=== PATIENT | male | born 1955 | race Caucasian/White ===

== ENCOUNTER 2018-09-26 14:01 | Outpatient (CLI) | payer OTHER | END 2018-09-26 14:02 | disposition home or self-care (01) | LOC: RT 14:01 | PROVIDERS: ATTEND Internal Medicine Gastroenterology | DX: I10 Essential (primary) hypertension (principal); I63.40 Cerebral infarction due to embolism of unspecified cerebral artery | CPT/HCPCS: 93005 ==

== ENCOUNTER 2018-09-30 09:29 | Day surgery (SDC) | payer OTHER ==
[~2018-09-30 09:29] MED LIST: BUPIVACAINE 0.25% PF 30 ML VIAL ONE; LACTATED RINGERS 1,000 ML IV ONE; LIDOCAINE 1%-EPI 1:100000 30 ML MDV ONE; ceFAZolin 2 GM/50 ML 2 GM/50 ML BAG IV ONE
--- NOTE | 2018-09-30 09:51 | ANESTHESIA ---
Pre-Anesthesia VS, & Labs - Diagnosis left inguinal hernia - Procedure left inguinal hernia repair Vital Signs: Temp Pulse Resp BP Pulse Ox 36.0 C L 51 L 16 190/117 H 100 09/30/18 09:40 09/30/18 09:40 09/30/18 09:40 09/30/18 09:40 09/30/18 09:40 Height 5 ft 11 in Weight (kg) 76.5 kg Body Mass Index 22.7 - NPO >8 hours Home Medications and Allergies Home Medications: Ambulatory Orders Lisinopril [Zestril] 40 mg PO DAILY 09/26/18 Metoprolol Succinate 100 mg PO DAILY 09/26/18 Lisinopril [Zestril] 40 mg PO DAILY 09/26/18 Metoprolol Succinate 100 mg PO DAILY 09/26/18 Allergies/Adverse Reactions: Allergies Allergy/AdvReac Type Severity Reaction Status Date / Time levofloxacin [From Levaquin] AdvReac Nausea Verified 09/26/18 13:54 Anes History & Medical History - Anesthetic History Anesthesia Complications: reports: No previous complications Family history of Anesthesia Complications: Denies Family history of Malignant Hyperthermia: Denies - Medical History Cardiovascular: reports: Hypertension Pulmonary: reports: None Gastrointestinal: reports: None Urinary: reports: None Musculoskeletal: reports: None Endocrine/Autoimmune: reports: None Blood Disorders: reports: None Skin: reports: None Smoking Status: Never smoker Exam General: Alert Dental: Other (caps) Mouth Openin Fingerbreadth Neck Mobility: Normal Mallampati classification: II Thyromental Distance: greater than 6 cm Respiratory: Lungs clear, Normal breath sounds, No respiratory distress, No accessory muscle use Cardiovascular: Regular rate, Normal S1, Normal S2, No murmurs Mental/Cognitive Status: Alert/Oriented X3, Normal for patient Plan Anesthesia Type: MAC Consent for Procedure(s) Verified and Reviewed: Yes Code Status: Attempt Resuscitation ASA classification: 2-Mild systemic disease Is this case an emergency?: No
[2018-09-30] MEDS ORDERED: BUPIVACAINE 0.25% PF 30 ML VIAL SUBQ ONE ×2 (10:29)
[2018-09-30] MEDS ORDERED: ceFAZolin 1 GM VIAL ONE (10:30)
[2018-09-30] MEDS ORDERED: DEXAMETHASONE 4 MG/ML VIAL IVP ONE (10:46)
[2018-09-30] MEDS ORDERED: KETOROLAC 30 MG/ML VIAL IVP ONE (10:46)
[2018-09-30] MEDS ORDERED: fentaNYL 100 MCG/2 ML VIAL IVP ONE (10:46)
[2018-09-30] MEDS ORDERED: hydrALAZINE INJ 20 MG/ML VIAL IVP ONE (10:46)
[2018-09-30] MEDS ORDERED: PROPOFOL 200 MG/20 ML VIAL IVP ONE (10:46)
[2018-09-30] MEDS ORDERED: ONDANSETRON 4 MG/2 ML VIAL IVP ONE (10:46)
[2018-09-30] MEDS ORDERED: MIDAZOLAM 2 MG/2 ML VIAL IVP ONE (10:46)
[2018-09-30] MEDS ORDERED: LIDOCAINE-MPF 2% 5 ML VIAL IM ONE (10:46)
[2018-09-30] MEDS ORDERED: LACTATED RINGERS 1,000 ML IV ONE (11:00)
[2018-09-30] MEDS ORDERED: ACETAMINOPHEN 325 MG TABLET PO PRN (11:43)
[2018-09-30] MEDS ORDERED: IBUPROFEN 600 MG TABLET PO PRN (11:43)
[2018-09-30] MEDS ORDERED: oxyCODONE 5 MG TABLET PO PRN (11:43)
[2018-09-30] MEDS ORDERED: ONDANSETRON 4 MG/2 ML VIAL IVP PRN (11:43)
[2018-09-30] MEDS ORDERED: oxyCODONE 5 MG TABLET ONE (12:23)
[2018-09-30 12:53] VITALS: BP 148/95
--- NOTE | 2018-09-30 20:37 | OPERATIVE REPORT ---
DATE OF SERVICE: 09/30/2018 Physician: Spike Chacko MD PREOPERATIVE DIAGNOSIS: Symptomatic left inguinal hernia. POSTOPERATIVE DIAGNOSIS: Symptomatic left inguinal hernia. PROCEDURE PERFORMED: Open repair of left inguinal hernia with polypropylene mesh. SURGEON: Spike Chacko MD ANESTHESIA: Local plus monitored anesthesia care by Eddy Rendon CRNA ESTIMATED BLOOD LOSS: 5 mL COMPLICATIONS: None. FINDINGS: A small indirect left inguinal hernia was identified. There was no evidence of direct or femoral hernia. INDICATIONS FOR PROCEDURE: Miguelito Brennan is a 63-year-old gentleman with the recent onset of a painful reducible left groin bulge. Examination revealed a left inguinal hernia. He was advised to undergo repair. PROCEDURE: After informed consent, the patient was taken to the operating room where he was placed s upine on the procedure table, sedated and monitored. Preoperative preparation included application o f sequential calf compression boots, administration of 2 grams cefazolin intravenously within one gee r of the incision. His left groin had been clipped in the A[facility], and was prepared with iodoform soluti on, following which a left groin block was instituted using a 50:50 combination of 1% lidocaine plain and 0.5% Marcaine with epinephrine. A total of 30 mL of the mixture was used. The left groin was t hen prepared with ChloraPrep solution and draped in the usual sterile fashion. A transverse incision was made in the skin lines of the left groin beginning above the pubic tubercle and extending laterally for a distance of approximately 4 cm. Hemostasis was achieved with electroc autery and 2-0 Vicryl tie. Incision carried down through subcutaneous tissues until the external obl ique aponeurosis was identified and was incised along the lines of its fibers un such a manner as to open the external ring and expose the internal ring. The spermatic cord was mobilized and encircled with a Giancarlo drain. The ilioinguinal nerve was identified and was mobilized and divided to avoid e ntrapment as a consequence of the repair. The spermatic cord was carefully dissected, isolating an in direct sac, which was dissected free from surrounding cord structure at the level of the internal rin g. The sac was opened and a finger inserted into the peritoneal cavity. A search for direct and fem oral hernias was made and none was identified. The hernia sac was twisted and then doubly highly lig ated with 3-0 silk suture ligatures. Excess hernia sac was amputated and discarded. After hemostasi s was assured, the wound was irrigated with antibiotic solution containing 1 gram of Ancef per liter, following which, a Bard expanded polypropylene mesh precut slotted device was soaked in antibiotic s olution and then placed over the inguinal floor and secured in place with continuous 3-0 Prolene sutu re, securing it to the shelving edge of Poupart's ligament inferiorly and to the internal oblique apo neurosis superolaterally and to the lateral border of the rectus sheath medially. Care was taken to avoid excessive tightening of the mesh around the cord at the level of the internal ring. After hemo stasis was assured, the wound was then irrigated with antibiotic solution, following which wound clos ure was accomplished in layers using continuous 2-0 Vicryl to reapproximate the external oblique apon eurosis overlying the cord, followed by 3-0 Vicryl for Milka's fascia, another layer of 3-0 Vicryl f or superficial subcutaneous tissues, followed by 4-0 Monocryl subcuticular skin closure, followed by Dermabond. The procedure was then terminated. The patient was transferred out of the operating room in satisfactory condition. Sponge and needle counts were correct x2. No drains were used. TD: 09/30/2018 11:58
== END 2018-09-30 09:30 | disposition home or self-care (01) ==
LOC: SDS 09:29
PROVIDERS: ATTEND Internal Medicine Gastroenterology
PROC: 0YU60JZ Supplement Left Inguinal Region with Synthetic Substitute, Open Approach (ICD-10-PCS; principal; 2018-09-30 09:00)
DX: K40.90 Unilateral inguinal hernia, without obstruction or gangrene, not specified as recurrent (principal); I10 Essential (primary) hypertension; I69.359 Hemiplegia and hemiparesis following cerebral infarction affecting unspecified side; E78.5 Hyperlipidemia, unspecified
CPT/HCPCS: 49505; A9270; C1781; J0690; J7120